=== PATIENT | female | born 1985 | race African-American/Black ===

== ENCOUNTER 2016-09-23 15:14 | Emergency (ER) | payer OTHER ==
[~2016-09-23] VITALS: Ht 157.5 cm; Wt 63.5 kg
[2016-09-23 15:15] VITALS: BP 116/77
[2016-09-23] MEDS ORDERED: NORCO 5-325 TA1 EACH PO (15:36)
[2016-09-23] MEDS ORDERED: MOBIC15 MG PO (15:36)
[2016-09-23] MEDS ORDERED: VALIUM5 MG PO (15:36)
== END 2016-09-23 16:15 | disposition home or self-care (01) ==
LOC: ER 15:14
DX: S16.1XXA Strain of muscle, fascia and tendon at neck level, initial encounter (principal); R51 Headache; M54.9 Dorsalgia, unspecified; F10.99 Alcohol use, unspecified with unspecified alcohol-induced disorder; V89.2XXA Person injured in unspecified motor-vehicle accident, traffic, initial encounter; Y93.89 Activity, other specified; Y92.89 Other specified places as the place of occurrence of the external cause; Y99.8 Other external cause status